=== PATIENT | female | born 1950 | race Hispanic/Latino ===

== ENCOUNTER 2025-08-28 09:02 | Day surgery (SDC) | payer OTHER, MEDICAID ==
[2025-08-23 12:41] VITALS: BP 160/80; PULSE 68; RESP 17; TEMP 99.1
[2025-08-23 12:43] LABS: IMMATURE GRANULOCYTE ABSOLUTE 0.02 K/uL (0-1); NUCLEATED RED BLOOD CELLS 0.0 % (0.0-0.19); PLATELET COUNT (AUTO) 221 K/uL (130-400); RED BLOOD CELL COUNT(AUTO) 3.79 MIL/uL (4.00-5.50); RED CELL DISTRIBUTION WIDTH 11.9 % (11.0-15.5); WHITE BLOOD COUNT (AUTO) 6.9 K/uL (4.8-10.8)
[2025-08-23 12:49] LABS: ADD UA MICROSCOPIC NO; APPEARANCE,URINE CLEAR (CLEAR); GLUCOSE, URINE (UA) NEGATIVE (NEGATIVE); LEUKOCYTE ESTERASE ,URINE NEGATIVE Leu/uL (NEGATIVE); NITRATE,URINE NEGATIVE (NEGATIVE); OCCULT BLOOD,URINE NEGATIVE (NEGATIVE)
[2025-08-23 12:50] LABS: CREATININE 0.9 mg/dL (0.5-1.0); GLOMERULAR FILTR. RATE CALC 66.0 mL/min (>90); GLUCOSE,RANDOM 245.0 mg/dL (70-105); SODIUM SERUM 133.0 mmol/L (136-145); UREA NITROGEN, BLOOD 18.0 mg/dL (7-18)
[2025-08-23 12:51] LABS: INR 0.98 (0.85-1.15)
--- NOTE | 2025-08-23 13:24 | EKG ---
[facility] Test Date: 2025-08-23 Test Time: 12:34:52 Pat Name: TELLY MERIDA Department: [facility] Room: Gender: F Director Of Public Health: [id number] : 1950 Requested By: BERT ACKERMAN Order Number: [id number] Reading MD: Bereket De Dios Measurements Intervals [place] Rate: 63 P: 48 NC: 154 QRS: 66 QRSD: 98 T: 44 QT: 412 QTc: 423 Interpretive Statements Sinus rhythm No previous ECG available for comparison Electronically Signed On 08-24-2025 08:51:24 FILM PAINTER by Bereket De Dios Please click the below link to view image of tracing.
--- NOTE | 2025-08-23 14:45 | HMCIMG ---
EXAM: CR Chest, 1 View. CLINICAL HISTORY: PRE OP COMPARISON: None provided. FINDINGS: LUNGS: Mild subtle linear densities within both lung bases suggestive for atelectasis. Slight elevation of the right hemidiaphragm compared to the left. Otherwise, there is no mass, infiltrate, or acute pulmonary abnormality. PLEURAL SPACES: No evidence of pleural effusion or pneumothorax. MEDIASTINUM: The cardiomediastinal silhouette is within normal limits. BONES: No aggressive appearing osseous lesion seen. IMPRESSION: No acute cardiopulmonary pathology is evident. Subtle dependent atelectasis within both lung bases. /[place]
[~2025-08-28] VITALS: Ht 139.7 cm; Wt 87.5 kg
[2025-08-28] VITALS (10 sets, daily range): BP systolic 157–178; BP diastolic 59–75; PULSE 79–94; RESP 13–18; TEMP 97.3–98.6
[2025-08-28] MEDS: 0.9%NACL 1000ML 1,000 ML IV SCH (09:59)
[2025-08-28] MEDS ORDERED: IODIXANOL 320 MG/ML 100 ML VIAL ONE (13:42)
[2025-08-28] MEDS ORDERED: LIDOCAINE HCL 400MG/20ML VIAL ONE (13:42)
[2025-08-28] MEDS ORDERED: NITROGLYCERIN 50MG VIAL ONE (13:43)
[2025-08-28] MEDS ORDERED: HEParin-NS 1,000 UNIT/500 ML 1,000 ML IV ONE (13:43)
[2025-08-28] MEDS ORDERED: MIDAZOLAM HCL 1 MG/ML 2ML VIAL ONE (13:48)
[2025-08-28] MEDS ORDERED: ASPIRIN 325MG EC TAB PO ONE (15:28)
--- NOTE | 2025-08-28 15:57 | PRN ---
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 Under local anesthesia with 1% lidocaine, using micropuncture technique with ultrasound guidance the right jugular vein was accessed from low anterior approach and a nine [place] sheath was inserted. Using a angled glide catheter and a Glidewire we cannulated the left deep femoral vein and performed left iliofemoral venography from common femoral vein to inferior vena cava. We exchanged for intravascular ultrasound and I personally performed intravascular ultrasound imaging, selected images for interpretation, measured the images and interpreted the results. We then administered 5000 units aqueous heparin and 600 mg clopidogrel and 325 mg aspirin and inserted a Medtronic Abre 14 by 14 x 150 mm self expanding venous stent system across the entire external left iliac, extending into the left common iliac vein, and we deployed it. Results were inspected by intravascular ultrasound and then we exchanged for a 12 by 40 mm balloon with which we performed post dilation along the entire length of the stent. We reassessed by intravascular ultrasound and then proceeded to the right side. An additional 2000 units aqueous heparin was administered intravenously. We wired the right deep femoral vein, performed intravascular ultrasound, exchanged for a [place] catheter and obtained a right iliofemoral venogram. We then exchanged for the 12 x 40 mm balloon and performed pre dilation along the intended treatment segment, then exchanged for a 14 x 120 mm Medtronic Abre venous self expanding stent system which we deployed across the entire right external iliac, extending into the common iliac. We inspected by intravascular ultrasound and then terminated the case, removing the catheter and later removing the sheath when the patient was in an upright position. The patient was transferred from the lab in stable condition with no complications. Results: Venography: Left iliofemoral venography demonstrated a 70% narrowing of the proximal left external iliac vein but this tended from distal common iliac all the way to the distal end of the external iliac, and the left common femoral appeared as large as the common iliac. Right iliofemoral venography demonstrated diffuse 60-70% narrowing of the right external iliac vein, extending from the distal common iliac to the transition from the external iliac to the common femoral. Intravascular ultrasound measurements were as follows: Inferior vena cava reference area 127 mm, diameter 13 mm. Left common iliac reference area 93 mm, diameter 12 mm Left external iliac vein reference area 99 mm, diameter 11.5 mm Left external iliac vein compression area 35 mm, diameter 9 mm, 78% stenosis. Left external iliac vein post stent minimal area 96 mm, diameter 12 mm. Left common femoral vein reference area 88 mm, diameter 11 mm, proximal compression area 35 mm, 59% stenosis Post stent reference area 96 mm, no residual Right common iliac vein reference area 89 mm, diameter 12 mm Right external iliac vein reference area 86 mm, diameter 11 mm Right external iliac vein compression area 25 mm, 71% stenosis. Right external iliac vein post stent area 84 mm, diameter 11 mm, 0% residual. Right common femoral vein reference area 89 mm, diameter 11 mm. 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 There was 78% stenosis on the left and 71% stenosis on the right, in the external iliacs. Successful venous stent treatment of left and right external iliac vein compression. All veins were of relatively small reference diameter and reference area, from the femoral to the inferior vena cava. BERT ACKERMAN MD Aug 28, 2025 15:57
--- NOTE | 2025-08-28 16:23 | NUR ---
RECEIVED PATIENT BACK FROM [facility] S/P VENOGRAM. DRESSING TO RIGHT JUGULAR SITE CLEAN, DRY AND INTACT. NOTED MINIMAL SWELLING TO SURROUNDING AREA. PER [facility] RN, SWELLING ALREADY PRESENT PRIOR TO PROCEDURE. SURROUNDING AREA SOFT, NON-TENDER, NO BLEEDING/OOZING NOTED
== END 2025-08-28 19:25 | disposition home or self-care (01) ==
LOC: DAH 09:02
PROVIDERS: ATTEND Internal Medicine Cardiovascular Disease
DX: I87.1 Compression of vein (principal); I87.2 Venous insufficiency (chronic) (peripheral); I70.203 Unspecified atherosclerosis of native arteries of extremities, bilateral legs; I10 Essential (primary) hypertension; E11.9 Type 2 diabetes mellitus without complications; G47.33 Obstructive sleep apnea (adult) (pediatric); M54.30 Sciatica, unspecified side; E78.2 Mixed hyperlipidemia; E03.9 Hypothyroidism, unspecified; Z79.82 Long term (current) use of aspirin; Z79.899 Other long term (current) drug therapy
CPT/HCPCS: 80048; 83880; 85025; 85610; 85730; 81003; 36415; 71045; 93005; 37238; 37239; 36012; 37252; 37253 ×5; 82948 ×2; 99156; 99157 ×6; C1876 ×2; C1887; C1769; C1894 ×2; C1753; C1725; J3010; J3490 ×2; J7030; J1644 ×2; J2250; Q9967; A4215; A4335; A4222; A4221; A4663; A4216; A4606; A4223 ×3; A4554

== ENCOUNTER 2025-08-29 01:45 | Emergency (ER) | payer OTHER, MEDICAID ==
[~2025-08-29] VITALS: Ht 154.9 cm; Wt 90.7 kg
[~2025-08-29 01:45] MED LIST: AMLO-258 PO; ASPI-1443 PO; ATOR40TA69 PO; CLON0.1T PO; CLOP75TA32 PO; EZET10TA80 PO; FURO20TA4 PO; INSU3INS3 SQ; IRBE300T26 PO; LEVO112T7 PO; METF-444 PO; METO50TA18 PO; PREG75CA76 PO
[2025-08-29 01:51] VITALS: BP 169/69; PULSE 79; RESP 20; TEMP 98.3
--- NOTE | 2025-08-29 02:42 | ERN ---
General Chief Complaint: Post-Op Problem Stated Complaint: C/O POST OP COMPLICATION Time Seen by MD: 02:17 Time Seen by Midlevel: 02:17 Source: patient History of Present Illness Initial Comments Patient is a 75-year-old female presenting to the emergency department for a wound evaluation. The patient was released from our hospital hours ago after she had a bilateral iliofemoral venogram, intravascular ultrasound, and external iliac stent implant placed. She noted bleeding from her incision site and decided to report to the ER for further evaluation. Allergies: Coded Allergies: No Known Drug Allergies (Unverified Allergy, Unknown, 08/23/25) Home Meds Active Scripts Clopidogrel Bisulfate (Clopidogrel) 75 Mg Tablet, 75 MG PO AM, #90 TAB Prov:BERT ACKERMAN MD 08/28/25 Reported Medications Irbesartan (Irbesartan) 300 Mg Tablet, 300 MG PO DAILY, TAB 08/23/25 Metformin HCl (Metformin HCl) 500 Mg Tablet, 500 MG PO BID, TAB 08/23/25 Metoprolol Tartrate (Metoprolol Tartrate) 50 Mg Tablet, 50 MG PO BID, TAB 08/23/25 Clonidine HCl (Clonidine HCl) 0.1 Mg Tablet, 0.1 MG PO DAILY PRN for IF SBP GREATER THAN 160, TAB 08/23/25 Ezetimibe (Ezetimibe) 10 Mg Tablet, 10 MG PO HS, TAB 08/23/25 Levothyroxine Sodium (Levothyroxine Sodium) 112 Mcg Tablet, 112 MCG PO ACBKFST, TAB 08/23/25 Atorvastatin Calcium (LIPITOR) 40 Mg Tablet, 40 MG PO HS, TAB 08/23/25 Aspirin (Aspirin EC) 81 Mg Tablet.dr, 81 MG PO HS, TAB 08/23/25 Pregabalin (Pregabalin) 75 Mg Capsule, 75 MG PO BID, CAP 08/23/25 Amlodipine Besylate (Amlodipine Besylate) 10 Mg Tablet, 10 MG PO DAILY for 30 Days, #30 TAB 0 Refills 08/23/25 Furosemide (Furosemide) 20 Mg Tablet, 20 MG PO DAILY, TAB 08/23/25 Insulin Glargine,Hum.rec.anlog (Lantus Solostar) 100 Unit/Ml (3 Ml) Insuln.pen, 30 UNIT SQ DAILY, SYRINGE 08/23/25 Past Medical History Past Medical History: Diabetes-Type II, Hypertension Past Surgical History: Other Surgical History Other: CARDIAC STENTS. ROS Dictation CONSTITUTIONAL: Negative except for HPI HEAD/FACE: Negative except for HPI EENT: Negative except for HPI RESPIRATORY: Negative except for HPI GASTROINTESTINAL/ABDOMINAL: Negative except for HPI GENITOURINARY: Negative except for HPI MUSCULOSKELETAL: Negative except for HPI INTEGUMENTARY: Negative except for HPI NEUROLOGICAL/PSYCH: Negative except for HPI HEMATOLOGIC/LYMPHATIC: Negative except for HPI All Systems Negative, Except as noted above. 13 point review of systems assessed and all negative except for above. Physical Exam Physical Exam Dictation Vital Signs reviewed General Appearance: Alert, oriented x 3, no acute distress, well developed, nourished. Head and Face: non-traumatic. Eyes: PERRL, pink conjunctivas, eyelid no trauma, anterior chamber with arcus senilis. Ears: Pinnas intact and no signs of trauma or erythema ear canals clear and no discharge TM no erythema Nose: No discharge, no bleeding. Oropharynx: Mouth normal, tongue pink, pharynx clear,no erythema, tonsils no exudates, no abscesses noted, mucous membrane moist Neck: Supple, non-tender, no thyromegaly, no masses, no JVD, no bruits Breast:Deferred Chest:No tenderness, no crepitus, no paradoxical movement, no retractions Lungs:Clear, well-ventilated, symmetric, no rales, no wheezing, no rhonchi, no stridor, good breath sounds bilaterally Heart: Regular rate, regular rhythm, no murmur, no gallops Vascular: no peripheral edema, Abdomen: Soft, positive bowel sounds, nondistended, no guarding, nontender, no rebound, no masses no hepatomegaly, no splenomegaly, no Owens's sign, no hernias. Rectal: Deferred Genital: Deferred Neurological: Normal speech, motor function intact, sensory function intact Musculoskeletal: Neck nontender, full range of motion, back nontender, full range of motion, Extremities: nontender, full range of motion Skin: There is a small incision to the right anterior neck with minimal active bleeding Lymphatic: Deferred MDM MDM: Patient is a 75-year-old female presenting to the emergency department for a wound evaluation. The patient was released from our hospital hours ago after she had a bilateral iliofemoral venogram, intravascular ultrasound, and external iliac stent implant placed. She noted bleeding from her incision site and decided to report to the ER for further evaluation. On physical examination the patient has a small incision to the right lateral neck with minimal active bleeding. There was an underlying hematoma palpated on examination. An ultrasound was performed which reveals your cm hematomas. No aneurysm noted. Attending physician Dr. Garcia evaluating patient and believes she is stable enough to be discharged. The patient was advised to report to the ER if she notices an increase in size of the hematoma. Differential diagnosis: Pseudo aneurysm, aneurysm, hematoma There are no social concerns with this patient. Prescription drug management Prescriptions will include: Medical management and examination interpretation discussions were had by me with other qualified healthcare professionals as indicated for the patient's care. ED Course Orders Procedure Category Date Status Time Us Soft Tissue Neck US 08/29/25 Resulted 02:13 Vital Signs Date Time Temp Pulse Resp B/P (MAP) Pulse Ox O2 Delivery O2 Flow Rate FiO2 08/29/25 01:51 98.2 79 20 169/69 97 Room Air DX & DISP Disposition: Discharge Departure Impression: Primary Impression: Hematoma of neck Condition: Stable Referrals: MISHA MORENO (PCP) Time of Disposition: 02:58 I have reviewed the case, and I agree with, Diagnosis and Plan I performed the substantive portion of the visit. I have reviewed and personally made and approve the management plan that is documented in the note by myself or the JUAN. I acknowledge for responsibility for the patient's management plan. IBETH RANGEL PAC Aug 29, 2025 02:42
--- NOTE | 2025-08-29 03:44 | HMCIMG ---
EXAM: US examination, area of interest: right neck. CLINICAL HISTORY: r/o hematoma. Cath procedure done on 08/28/2025. TECHNIQUE: Real-time ultrasound examination performed with image documentation in the area of interest in the right neck. COMPARISON: None provided. FINDINGS: An ultrasound was performed at two areas of interest in the right neck, with findings as follows: A hypoechoic area without vascularity measuring 4.1 x 1.1 x 3.3 cm in the upper area of interest. Another hypoechoic area without vascularity measuring 3.8 x 1.3 x 2.6 cm in the lower area of interest. IMPRESSION: At least 2 hypoechoic areas in the right neck region adjacent to the right jugular vein, as detailed above, are likely to be hematomas. No evidence of internal jugular vein thrombosis in the visualized scan. /[place]
[2025-08-31] MEDS ORDERED: CLOP75TA32 PO (18:26)
== END 2025-08-29 03:33 | disposition home or self-care (01) ==
LOC: EDH 01:45
DX: S10.93XA Contusion of unspecified part of neck, initial encounter (principal); E11.9 Type 2 diabetes mellitus without complications; I10 Essential (primary) hypertension; Z95.5 Presence of coronary angioplasty implant and graft; Z79.82 Long term (current) use of aspirin; Z79.4 Long term (current) use of insulin; Z79.84 Long term (current) use of oral hypoglycemic drugs; Z79.899 Other long term (current) drug therapy; X58.XXXA Exposure to other specified factors, initial encounter; Y93.89 Activity, other specified; Y92.89 Other specified places as the place of occurrence of the external cause; Y99.8 Other external cause status
CPT/HCPCS: 76536; 99284